=== PATIENT | female | born 1990 | race Two or more races ===

== ENCOUNTER → 2016-12-19 | Outpatient (CLI) | payer BC | END | disposition home or self-care (01) | LOC: LAB 12:09 | PROVIDERS: ATTEND Specialist | DX: N92.6 Irregular menstruation, unspecified (principal) | CPT/HCPCS: 36415; 82627; 83001; 83002; 84146; 84403 ==

== ENCOUNTER → 2017-05-29 | Outpatient (CLI) | payer BC | END | disposition home or self-care (01) | LOC: LAB 08:42 | PROVIDERS: ATTEND Specialist | DX: E28.2 Polycystic ovarian syndrome (principal) | CPT/HCPCS: 36415; 83001; 83525; 84403 ==